=== PATIENT | female | born 1995 | race Hispanic/Latino ===

== ENCOUNTER 2023-12-07 15:32 | Emergency (ER) | payer BC ==
[~2023-12-07] VITALS: Ht 157.5 cm; Wt 94.8 kg
[2023-12-07] MEDS: ACETAMINOPHEN 500 MG TABLET PO ONE (15:48)
[2023-12-07 16:04] LABS: BASOPHILS # (AUTO) 0.01 K/uL (0.00-0.20); BASOPHILS % (AUTO) 0.1 % (0.0-5.0); EOSINOPHILS # (AUTO) 0.15 K/uL (0.00-0.70); EOSINOPHILS % (AUTO) 1.4 % (0.0-8.0); HEMATOCRIT 41.9 % (36-48); IMMATURE GRANULOCYTE ABSOLUTE 0.02 K/uL (0-1); LYMPHOCYTES # (AUTO) 3.7 K/uL (1.0-4.8); LYMPHOCYTES % (AUTO) 34.2 % (21.0-51.0); MEAN CORPUSCULAR HEMOGLOBIN 26.4 pg (27.0-33.0); MEAN CORPUSCULAR HGB CONC 33.9 g/dL (32.0-36.0); MEAN CORPUSCULAR VOLUME 77.9 fL (79-99); MONOCYTES # (AUTO) 0.4 K/uL (0.1-1.0); NEUTROPHILS # (AUTO) 6.4 K/uL (1.8-7.7); NEUTROPHILS % (AUTO) 60.1 % (40.0-77.0); PLATELET COUNT (AUTO) 284 K/uL (130-400); RED BLOOD CELL COUNT(AUTO) 5.38 MIL/uL (4.00-5.50); RED CELL DISTRIBUTION WIDTH 12.7 % (11.0-15.5); WHITE BLOOD COUNT (AUTO) 10.7 K/uL (4.8-10.8)
[2023-12-07 16:18] LABS: CREATININE 0.6 mg/dL (0.5-1.0); POTASSIUM 3.9 mmol/L (3.5-5.1)
[2023-12-07 16:23] LABS: ALBUMIN 3.5 g/dL (3.5-5.0); BILIRUBIN,TOTAL 0.2 mg/dL (0.2-1.0)
[2023-12-07 16:48] VITALS: TEMP 98.5
[2023-12-07] MEDS ORDERED: IBUP-2077 PO (17:37)
[2023-12-07] MEDS ORDERED: CLIN-141 PO (17:37)
[2023-12-07] MEDS: LIDOCAINE HCL 1% 20 ML VIAL INJ SCH (17:40)
[2023-12-07] MEDS: CLINDAMYCIN 150 MG CAP PO ONE (17:41)
[2023-12-07 17:42] VITALS: BP 134/85; PULSE 86; RESP 16; O2SAT 98
== END 2023-12-07 17:51 | disposition home or self-care (01) ==
LOC: EDH 15:32
DX: L02.411 Cutaneous abscess of right axilla (principal); E11.65 Type 2 diabetes mellitus with hyperglycemia
CPT/HCPCS: 10060; 36415; 80053; 85025; 87070; 87077; 87186